=== PATIENT | male | born 1970 | race Caucasian/White ===

== ENCOUNTER 2017-09-28 00:05 | Inpatient (IN) | payer MEDICARE, OTHER ==
[~2017-09-28] VITALS: Ht 185.4 cm; Wt 136.0 kg
[2017-09-28] MEDS ORDERED: GABA-533 PO (00:14)
[2017-09-28] MEDS ORDERED: METO25 PO (00:14)
[2017-09-28] MEDS ORDERED: LIDOCAINE HCL 2%/EPI 1:200,000/PF 20 ML VIAL INJ ONE (00:45)
[2017-09-28 00:57] LABS: BASOPHILS % (AUTO) 0.8 % (0.0-2.0); EOSINOPHILS % (AUTO) 2.5 % (1.0-6.0); HEMATOCRIT 47.9 % (41-53); HEMOGLOBIN 16.6 g/dL (13.5-17.5); LYMPHOCYTES % (AUTO) 24.4 % (22.0-44.0); MEAN CORPUSCULAR HEMOGLOBIN 28.6 pg (26.0-34.0); MEAN CORPUSCULAR HGB CONC 34.7 G/dL (31.0-37.0); MEAN CORPUSCULAR VOLUME 82 fL (80-100); MONOCYTES # (AUTO) 0.8 K/uL (0.1-1.0); MONOCYTES % (AUTO) 6.4 % (2.0-9.0); NEUTROPHILS % (AUTO) 65.9 % (40.0-70.0); PLATELET COUNT (AUTO) 270 K/uL (150-450); RED BLOOD CELL COUNT(AUTO) 5.81 MIL/uL (4.50-5.90); RED CELL DISTRIBUTION WIDTH 13.8 % (11.5-14.5)
[2017-09-28 01:08] LABS: ANION GAP 13 mmol/L (8-16); CALCIUM, TOTAL 9.3 mg/dL (8.8-10.5); CARBON DIOXIDE 24 mmol/L (22-29); CHLORIDE 103 mmol/L (98-107); CREATININE 1.34 mg/dL (0.60-1.30); GLOMERULAR FILTR. RATE CALC 58 mL/min (>60); GLUCOSE,RANDOM 96 mg/dL (70-110); SODIUM SERUM 140 mmol/L (136-145); UREA NITROGEN, BLOOD 19 mg/dL (7-18)
[2017-09-28 01:14] LABS: ALANINE AMINOTRANSFERASE 150 U/L (12-78); ALBUMIN 4.3 g/dL (3.4-5.0); ALKALINE PHOSPHATASE 99 U/L (46-116); ASPARTATE AMINOTRANSFERASE 53 U/L (15-37); BILIRUBIN,TOTAL 0.3 mg/dL (0.1-1.0); TOTAL PROTEIN, SERUM 8.4 g/dL (6.4-8.2)
[2017-09-28] MEDS ORDERED: OxyCODONE HCL/ACETAMINOPHEN 5-325 MG TABLET PO ONE (02:00)
[2017-09-28 02:41] LABS: AMPHET/METH SCREEN,URINE NEGATIVE (NEGATIVE); BARBITURATE SCREEN, URINE NEGATIVE (NEGATIVE); BENZODIAZEPINES SCREEN,URINE NEGATIVE (NEGATIVE); CANNABINOID SCREEN,URINE POSITIVE (NEGATIVE); COCAINE SCREEN,URINE NEGATIVE (NEGATIVE); METHADONE SCREEN, URINE NEGATIVE (NEGATIVE); OPIATE SCREEN,URINE NEGATIVE (NEGATIVE)
[2017-09-28 02:46] LABS: PHENCYCLIDINE SCREEN,URINE NEGATIVE (NEGATIVE)
[2017-09-28 11:40] VITALS: BP 132/90
[2017-09-28] MEDS ORDERED: PNEUMOCOCCAL VACCINE POLYVALENT 0.5 ML VIAL [PPSV23] IM ONE (17:00)
[2017-09-28 21:05] VITALS: BP 160/100
[2017-09-28] MEDS: OLANZapine 5 MG TABLET PO SCH (21:10)
[2017-09-28] MEDS: LORazepam 2 MG TABLET PO PRN (21:10)
[2017-09-28] MEDS ORDERED: CloNIDine HCL 0.1 MG TABLET PO PRN (21:15)
[2017-09-28] MEDS ORDERED: ACETAMINOPHEN 325 MG TABLET PO PRN (22:00)
[2017-09-28] MEDS ORDERED: IBUPROFEN 600 MG TABLET PO PRN (22:00)
[2017-09-28 22:32] VITALS: BP 131/89
[2017-09-29] MEDS: ZOLPIDEM TARTRATE 10 MG TABLET PO PRN ×2 (00:42→21:07)
[2017-09-29] MEDS: TraMADol HCL 50 MG TABLET PO PRN ×2 (00:42→17:08)
[2017-09-29] MEDS: HALOPERIDOL 5 MG TABLET PO PRN ×2 (00:43→17:07)
[2017-09-29] MEDS: LORazepam 2 MG TABLET PO PRN ×3 (00:43→21:07)
[2017-09-29 00:46] VITALS: BP 139/88
[2017-09-29 08:13] VITALS: BP 124/70
[2017-09-29] MEDS: FLUoxetine HCL 20 MG CAPSULE PO SCH (08:51)
[2017-09-29] MEDS: METOPROLOL SUCCINATE 25 MG ER TABLET PO SCH (08:51)
[2017-09-29] MEDS: CEPHALEXIN MONOHYDRATE 500 MG CAPSULE PO SCH ×4 (08:52→21:07)
[2017-09-29] MEDS: BACITRACIN 28.4 GM OINTMENT TP SCH (08:52)
[2017-09-29] MEDS ORDERED: METOPROLOL TARTRATE 25 MG TABLET PO SCH (09:00)
[2017-09-29 16:05] VITALS: BP 115/68
[2017-09-29] MEDS: OLANZapine 5 MG TABLET PO SCH (21:07)
[2017-09-30 02:44] VITALS: BP 140/89
[2017-09-30 08:14] VITALS: BP 130/74
[2017-09-30] MEDS: FLUoxetine HCL 20 MG CAPSULE PO SCH (08:25)
[2017-09-30] MEDS: CEPHALEXIN MONOHYDRATE 500 MG CAPSULE PO SCH ×4 (08:25→20:15)
[2017-09-30] MEDS: METOPROLOL SUCCINATE 25 MG ER TABLET PO SCH (08:25)
[2017-09-30] MEDS: BACITRACIN 28.4 GM OINTMENT TP SCH (09:21)
[2017-09-30] MEDS ORDERED: HALOPERIDOL LACTATE 5 MG/ML VIAL IM ONE (15:15)
[2017-09-30] MEDS ORDERED: LORazepam 2 MG/ML VIAL IM ONE (15:15)
[2017-09-30] MEDS ORDERED: DiphenhydrAMINE HCL 50 MG/ML VIAL IM ONE (15:15)
[2017-09-30] MEDS ORDERED: LORazepam 2 MG/ML VIAL ONE (15:16)
[2017-09-30] MEDS ORDERED: HALOPERIDOL LACTATE 5 MG/ML VIAL ONE (15:16)
[2017-09-30] MEDS ORDERED: DiphenhydrAMINE HCL 50 MG/ML VIAL ONE (15:17)
[2017-09-30] MEDS: OLANZapine 10 MG TABLET PO SCH (20:15)
[2017-10-01 00:41] VITALS: BP 145/92
[2017-10-01] MEDS: ZOLPIDEM TARTRATE 10 MG TABLET PO PRN (00:42)
[2017-10-01] MEDS: TraMADol HCL 50 MG TABLET PO PRN (01:37)
[2017-10-01] MEDS: HALOPERIDOL 5 MG TABLET PO PRN (01:37)
[2017-10-01] MEDS: LORazepam 2 MG TABLET PO PRN ×2 (01:38→16:50)
[2017-10-01 08:06] VITALS: BP 131/79
[2017-10-01] MEDS: FLUoxetine HCL 20 MG CAPSULE PO SCH (09:13)
[2017-10-01] MEDS: METOPROLOL SUCCINATE 25 MG ER TABLET PO SCH (09:13)
[2017-10-01] MEDS: CEPHALEXIN MONOHYDRATE 500 MG CAPSULE PO SCH ×4 (09:13→20:15)
[2017-10-01] MEDS: BACITRACIN 28.4 GM OINTMENT TP SCH (09:14)
[2017-10-01 09:40] LABS: BASOPHILS % (AUTO) 0.7 % (0.0-2.0); EOSINOPHILS % (AUTO) 4.1 % (1.0-6.0); HEMATOCRIT 41.8 % (41-53); HEMOGLOBIN 14.2 g/dL (13.5-17.5); LYMPHOCYTES # (AUTO) 2.5 K/uL (1.0-4.8); LYMPHOCYTES % (AUTO) 38.3 % (22.0-44.0); MEAN CORPUSCULAR HEMOGLOBIN 28.7 pg (26.0-34.0); MEAN CORPUSCULAR HGB CONC 34.1 G/dL (31.0-37.0); MEAN CORPUSCULAR VOLUME 84 fL (80-100); MONOCYTES # (AUTO) 0.3 K/uL (0.1-1.0); MONOCYTES % (AUTO) 4.7 % (2.0-9.0); NEUTROPHILS # (AUTO) 3.4 K/uL (1.8-7.7); NEUTROPHILS % (AUTO) 52.2 % (40.0-70.0); PLATELET COUNT (AUTO) 211 K/uL (150-450); RED BLOOD CELL COUNT(AUTO) 4.96 MIL/uL (4.50-5.90); RED CELL DISTRIBUTION WIDTH 13.5 % (11.5-14.5)
[2017-10-01 09:57] LABS: HEMOGLOBIN A1C 6.4 % (4.5-6.2)
[2017-10-01 10:33] LABS: ALBUMIN 3.7 g/dL (3.4-5.0); BILIRUBIN,TOTAL 0.4 mg/dL (0.1-1.0); CALCIUM, TOTAL 8.6 mg/dL (8.8-10.5); CHOL/HDL RATIO 7.9 (4.2-7.3); CREATININE 1.4 mg/dL (0.60-1.30); FREE T4 (FREE THYROXINE) 0.95 ng/dL (0.76-1.46); MAGNESIUM 2.1 mg/dL (1.80-2.40); POTASSIUM 3.7 mmol/L (3.5-5.1); THYROID STIMULATING HORMONE 1.7 uIU/mL (0.36-3.74); TOTAL PROTEIN, SERUM 7.1 g/dL (6.4-8.2)
[2017-10-01 13:42] LABS: FOLATE SERUM 5.3 ng/mL (5.4-)
[2017-10-01 16:45] VITALS: BP 138/95
[2017-10-01] MEDS: OLANZapine 10 MG TABLET PO SCH (20:15)
[2017-10-02 01:56] VITALS: BP 142/86
[2017-10-02] MEDS: LORazepam 2 MG TABLET PO PRN (02:00)
[2017-10-02] MEDS: ZOLPIDEM TARTRATE 10 MG TABLET PO PRN (02:00)
[2017-10-02] MEDS: TraMADol HCL 50 MG TABLET PO PRN (06:20)
[2017-10-02 08:05] VITALS: BP 156/97
[2017-10-02 08:30] VITALS: BP 145/79
[2017-10-02] MEDS: METOPROLOL SUCCINATE 25 MG ER TABLET PO SCH (08:53)
[2017-10-02] MEDS: BACITRACIN 28.4 GM OINTMENT TP SCH (08:53)
[2017-10-02] MEDS: CEPHALEXIN MONOHYDRATE 500 MG CAPSULE PO SCH (08:53)
[2017-10-02] MEDS: FLUoxetine HCL 20 MG CAPSULE PO SCH (08:53)
[2017-10-02] MEDS ORDERED: CEPH500 PO (11:55)
[2017-10-02] MEDS ORDERED: FLUO40CA7 PO (11:56)
[2017-10-02] MEDS ORDERED: OLAN10TA20 PO (11:56)
[2017-10-02] MEDS ORDERED: METO-408 PO (11:57)
== END 2017-10-02 12:40 | disposition home or self-care (01) | DRG 885 ==
LOC: EMS 00:06 → AHU 11:03 → B2S 18:10 → B3A 21:20
PROVIDERS: ADMIT Psychiatry & Neurology Psychiatry; ATTEND Psychiatry & Neurology Psychiatry
PROC: 0HQEXZZ Repair Left Lower Arm Skin, External Approach (ICD-10-PCS; principal; 2017-09-28)
DX: F25.1 Schizoaffective disorder, depressive type (principal); N17.9 Acute kidney failure, unspecified; R45.851 Suicidal ideations; D72.829 Elevated white blood cell count, unspecified; E87.6 Hypokalemia; S51.812A Laceration without foreign body of left forearm, initial encounter; M54.9 Dorsalgia, unspecified; R79.89 Other specified abnormal findings of blood chemistry; F43.10 Post-traumatic stress disorder, unspecified; I12.9 Hypertensive chronic kidney disease with stage 1 through stage 4 chronic kidney disease, or unspecified chronic kidney disease; N18.9 Chronic kidney disease, unspecified; F60.3 Borderline personality disorder; Z28.21 Immunization not carried out because of patient refusal; Z91.041 Radiographic dye allergy status; Z79.899 Other long term (current) drug therapy; Z63.9 Problem related to primary support group, unspecified; X83.8XXA Intentional self-harm by other specified means, initial encounter; Z91.5 Personal history of self-harm; Z82.49 Family history of ischemic heart disease and other diseases of the circulatory system; Y93.89 Activity, other specified; Y92.89 Other specified places as the place of occurrence of the external cause; Y99.8 Other external cause status
CPT/HCPCS: 12002; 80074; 82306; 82607; 82746; 83036; 83735; 84439; 84443; 90471; 99285; G0480; J1200; J1630; J2060